=== PATIENT | male | born 1970 | race Caucasian/White ===

== ENCOUNTER 2022-12-31 08:27 | Emergency (ER) | payer SELFPAY ==
[2022-12-31] VITALS (21 sets, daily range): BP systolic 83–142; BP diastolic 50–86; PULSE 59–93; RESP 16; O2SAT 93–99
--- NOTE | ~2022-12-31 | XR_ITS ---
EXAMINATION: XR chest 1V portable 12/31/2022 09:01 INDICATION: Chest pain PROCEDURE: AP portable chest COMPARISON: No prior studies for comparison. FINDINGS: The lungs are clear. The cardiomediastinal silhouette is within normal limits. There are no pleural effusions. There is no pneumothorax suspected. IMPRESSION: 1: NO ACUTE CARDIOPULMONARY DISEASE. Reviewed, dictated and finalized at location A.
--- NOTE | 2022-12-31 08:28 | ECG_ITS ---
Measurements Intervals [place] Rate: 74 P: 58 AL: 158 QRS: 48 QRSD: 97 T: 34 QT: 367 QTc: 408 Interpretive Statements SINUS RHYTHM BASELINE ARTIFACT- AVR, AVF, V1 BORDERLINE T WAVE ABNORMALITY- ANTERIOR LEADS BORDERLINE ECG NO PREVIOUS ECG AVAILABLE FOR COMPARISON Electronically Signed On 12-31-2022 13:00:58 CDT by John Munson D.O.
[2022-12-31] MEDS: risperiDONE 1 MG TABLET 3 MG PO (09:06)
--- NOTE | 2022-12-31 09:11 | ED.CHESTPAIN ---
HPI - Chest Pain General Chief Complaint: Chest Pain Stated Complaint: chest pain History of Present Illness HPI narrative: 52-year-old male with history of schizophrenia and coronary disease presented the emergency department for evaluation of chest pain. Patient states when he was going to bed he did not take his schizophrenic meds. Patient states he was woken up by his cat pushing on his chest. Patient states when he rolled over onto his side he began having chest pain. Patient states the chest pain did radiate to his left arm. Patient called EMS for this pain. Patient was treated with aspirin and nitro prior to arrival. Patient states that the nitro did help with his chest pain. Patient denies any associated diaphoresis nausea vomiting or shortness of breath with the pain. Patient reports he did have a prior PR back in 2013 but has no cardiac stents. Related Data Home Medications Medication Instructions Recorded Confirmed aspirin 325 mg tablet 325 mg PO DAILY 12/31/22 glipizide 5 mg tablet 5 mg PO BID 12/31/22 lisinopril 10 mg tablet 10 mg PO DAILY 12/31/22 metformin 500 mg tablet,extended 500 mg PO DAILY 12/31/22 release 24 hr metoprolol tartrate 50 mg tablet 50 mg PO DAILY 12/31/22 multivit with minerals-iron 18 1 tablet PO DAILY 12/31/22 mg-folic ac 400 mcg-vit K 25 mcg tablet (Adults Multivitamin) risperidone 3 mg tablet 3 mg PO DAILY 12/31/22 simvastatin 40 mg tablet 40 mg PO DAILY 12/31/22 Allergies Allergy/AdvReac Type Severity Reaction Status Date / Time No Known Allergies Allergy Verified 12/31/22 09:06 Review of Systems Review of Systems: All systems reviewed & are unremarkable except as noted in HPI and below Exam Narrative: APPEARANCE: Well appearing, no pain, no distress, well-nourished. HEAD: normocephalic, atraumatic. EYES: PERRLA/EOMI, conjunctivae clear. NOSE: Normal no drainage EARS:TMS clear with good light reflex. THROAT: Pharynx clear, no exudate. NECK: Supple. No adenopathy, no masses. RESPIRATORY: Airway patent, respirations nonlabored. Clear to auscultation bilaterally, no rales, rhonchi, wheezing. CARDIOVASCULAR: Regular rate and rhythm without murmurs rubs or gallops. ABDOMINAL: Soft, nontender, nondistended, normal bowel sounds MUSCULOSKELETAL: Moves all extremities. Strength/ROM intact, No edema, No calf tenderness. NEURO: Alert. Cranial nerves II through XII intact. Grossly intact SKIN: Warm, dry. Normal Color Course Course Emergency Course: 52-year-old male presented the ED for evaluation of chest pain. EKG showed normal sinus rhythm. Patient's chest x-ray showed no acute cardiopulmonary abnormality. Patient was afebrile with no leukocytosis. Patient had negative serial troponins. Patient's CMP was similar to his baseline. Chest x-ray showed no acute cardiopulmonary normality. On reevaluation patient states he is currently pain-free. Patient was comfortable with plan for discharge to home with close follow-up with his primary care physician for additional outpatient cardiac testing. Vital Signs Vital signs: Vital Signs Pulse Rate 80 12/31/22 08:23 Respiratory Rate 16 12/31/22 08:23 Blood Pressure 118/81 12/31/22 08:23 Pulse Oximetry 98 12/31/22 08:23 Oxygen Delivery Room Air 12/31/22 08:23 Pulse Rate 90 12/31/22 12:48 Respiratory Rate 16 12/31/22 12:48 Blood Pressure 142/86 H 12/31/22 12:48 Pulse Oximetry 95 12/31/22 12:48 Oxygen Delivery Room Air 12/31/22 08:23 MDM - Chest Pain Differential Diagnosis Differential diagnosis: Likely pneumothorax, unstable angina pectoris, atypical chest pain, st elevation myocardial infarction, costochondritis, chest pain and biliary colic Lab Data Attestation: I reviewed the patient's lab results. 12/31/22 09:11 12/31/22 09:11 Labs: Lab Results 12/31/22 12/31/22 Range/Units 09:11 11:26 WBC 8.1 (4.5-10.0) K/mm3 RBC 4.71 (
[2022-12-31 09:18] LABS: Basophils Absolute Auto 0.1 K/mm3 (0.0-0.1); Eosinophils Absolute Auto 0.4 K/mm3 (0-0.3); Eosinophils Percent Auto 4.3 % (0-4.4); Hematocrit 41.8 % (42.0-52.0); Hemoglobin 14.3 g/dL (14.0-18.0); Immature Granulocyte Absolute 0.04 K/mm3 (0.00-0.031); Immature Granulocyte Percent A 0.5 % (0-0.5); Lymphocytes Absolute Auto 1.44 K/mm3 (0.9-3.2); Lymphocytes Percent Auto 17.7 % (18.3-44.2); Mean Corpuscular HGB Conc 34.2 g/dl (32-36); Mean Corpuscular Hemoglobin 30.4 pg (26-34); Mean Corpuscular Volume 88.7 fl (80-100); Monocytes Absolute Auto 0.7 K/mm3 (0.1-0.6); Monocytes Percent Auto 8.6 % (2.6-8.5); Neutrophils Absolute Auto 5.5 K/mm3 (1.3-6.7); Neutrophils Percent Auto 67.9 % (45.5-73.1); Platelet Count Result 167 k/mm3 (150-375); Red Blood Count 4.71 M/mm3 (4.6-6.20); Red Cell Distribution Width 12.5 % (11.5-14.5); White Blood Count 8.1 K/mm3 (4.5-10.0)
[2022-12-31 09:27] LABS: Alanine Aminotransferase 26 U/L (6-50); Albumin Level 3.6 g/dL (3.5-5.1); Alkaline Phosphatase 52 U/L (38-126); Anion Gap 5 mmol/L (8-16); Aspartate Amino Transferase 25 U/L (17-59); Bilirubin,Total 0.7 mg/dL (0.2-1.3); Blood Urea Nitrogen 11 mg/dL (9-20); Calcium 7.9 mg/dL (8.4-10.2); Carbon Dioxide 24 mmol/L (22-30); Chloride 106 mmol/L (98-107); Estimated CRCL calculation 136 ml/min; Estimated Glomerular Filt Rate > 60; Glucose 197 mg/dL (65-110); Lipase 32 U/L (23-300); Potassium 4.1 mmol/L (3.4-5.0); Sodium 135 mmol/L (137-145)
[2022-12-31 09:38] LABS: Troponin I < 0.012 ng/mL (0.000-0.034)
[2022-12-31 09:50] LABS: Prothrombin Time 13.7 Seconds (11.1-14.7)
[2022-12-31 11:53] LABS: Troponin I < 0.012 ng/mL (0.000-0.034)
--- NOTE | 2022-12-31 13:20 | PCCCNOTE ---
Called to ED to assist with transportation issue. 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 Cab voucher provided
== END 2022-12-31 13:31 | disposition home or self-care (01) ==
LOC: ANHED 13:12
PROVIDERS: Emergency Provider Emergency Medicine
DX: R07.89 Other chest pain (principal); I25.10 Atherosclerotic heart disease of native coronary artery without angina pectoris; I25.2 Old myocardial infarction; F20.9 Schizophrenia, unspecified; Z79.84 Long term (current) use of oral hypoglycemic drugs; R94.31 Abnormal electrocardiogram [ECG] [EKG]
CPT/HCPCS: 36415; 71045; 80053; 83690; 84484; 85025; 85610; 85730; 93005; 99284; A9270